=== PATIENT | female | born 1935 | race Two or more races ===

== ENCOUNTER 2017-12-04 17:16 | Emergency (ER) | payer OTHER ==
[~2017-12-04] VITALS: Ht 160 cm; Wt 51.3 kg
[~2017-12-04 17:16] MED LIST: ATIVAN0.5 M1; AVAPRO75 MG PO; CATAFLAM50 MG PO; HYDRALAZINE HCL10 MG PO; LYRICA50 MG PO; NABUMETONE500 MG PO; NORVASC2.5 M1; ORPH100T PO; PERCOCET 5/3251 TAB PO; PRILOSEC10 MG PO; PROAIR HFA8.5 GM; PROTEIN PO; SPIRIVA RESPIMAT4 G1 IH; SYNTHROID PO; SYNTHROID50 MCG; WELLBUTRIN100 MG; XANAX XR0.5 MG PO
[2017-12-09] MEDS ORDERED: FLOVENT DISKUS50 MCG IH (09:20)
[2017-12-09] MEDS ORDERED: NORVASC5 MG PO (09:21)
[2017-12-09] MEDS ORDERED: ZANTAC150 M3 PO (09:21)
[2017-12-09] MEDS ORDERED: PROAIR HFA8.5 GM (09:21)
[2017-12-09] MEDS ORDERED: ATIVAN0.5 M1 PO (09:22)
[2017-12-09] MEDS ORDERED: SYNTH PO (09:22)
[2017-12-09] MEDS ORDERED: VASOFLEX D1 CA1 EACH PO (09:23)
== END 2017-12-04 19:43 | disposition home or self-care (01) ==
LOC: ER 17:16
DX: S52.592A Other fractures of lower end of left radius, initial encounter for closed fracture (principal); W18.39XA Other fall on same level, initial encounter; Y93.89 Activity, other specified; Y92.018 Other place in single-family (private) house as the place of occurrence of the external cause; Y99.8 Other external cause status

== ENCOUNTER 2017-12-12 05:22 | Day surgery (SDC) | payer OTHER ==
[~2017-12-12 05:22] MED LIST changes: +ATIVAN0.5 M1 PO; +FLOVENT DISKUS50 MCG IH; +NORVASC5 MG PO; +SYNTH PO; +VASOFLEX D1 CA1 EACH PO; +ZANTAC150 M3 PO
[2017-12-12] MEDS ORDERED: PERCOCET 5-3251 EACH PO (10:21)
== END 2017-12-12 13:45 | disposition home or self-care (01) ==
LOC: CIR.AMB 05:22
DX: S52.532A Colles' fracture of left radius, initial encounter for closed fracture (principal); S52.572A Other intraarticular fracture of lower end of left radius, initial encounter for closed fracture; M81.0 Age-related osteoporosis without current pathological fracture
CPT/HCPCS: 25609; 20902; C1776

== ENCOUNTER 2019-05-06 10:32 | Outpatient (CLI) | payer OTHER ==
[~2019-05-06 10:32] MED LIST changes: +PERCOCET 5-3251 EACH PO
== END 2019-05-06 10:42 | disposition home or self-care (01) ==
LOC: RAD 501 10:32
DX: S69.82XA Other specified injuries of left wrist, hand and finger(s), initial encounter (principal); M79.672 Pain in left foot

== ENCOUNTER → 2019-11-26 | Outpatient (CLI) | payer OTHER | END | disposition home or self-care (01) | LOC: RAD 12:39 | DX: S52.531D Colles' fracture of right radius, subsequent encounter for closed fracture with routine healing (principal) ==

== ENCOUNTER 2019-12-11 10:18 | Outpatient (CLI) | payer OTHER | END 2019-12-13 09:15 | disposition home or self-care (01) | LOC: RAD 10:18 | DX: S52.501D Unspecified fracture of the lower end of right radius, subsequent encounter for closed fracture with routine healing (principal) ==

== ENCOUNTER 2020-01-13 09:58 | Emergency (ER) | payer OTHER ==
[~2020-01-13] VITALS: Ht 149.9 cm; Wt 65.3 kg
== END 2020-01-13 13:56 | disposition home or self-care (01) ==
LOC: ER 09:58
DX: S70.02XA Contusion of left hip, initial encounter (principal); S00.83XA Contusion of other part of head, initial encounter; W18.39XA Other fall on same level, initial encounter; Y93.89 Activity, other specified; Y92.098 Other place in other non-institutional residence as the place of occurrence of the external cause; Y99.8 Other external cause status

== ENCOUNTER 2020-01-27 12:36 | Outpatient (CLI) | payer OTHER | END 2020-01-27 12:46 | disposition home or self-care (01) | LOC: RAD 12:36 | DX: S52.501S Unspecified fracture of the lower end of right radius, sequela (principal); M25.512 Pain in left shoulder ==

== ENCOUNTER 2020-06-08 08:21 | Outpatient (CLI) | payer OTHER | END 2020-06-08 08:25 | disposition home or self-care (01) | LOC: RAD 08:21 | PROVIDERS: ATTEND Physical Medicine & Rehabilitation | DX: S32.000A Wedge compression fracture of unspecified lumbar vertebra, initial encounter for closed fracture (principal) ==

== ENCOUNTER 2020-10-31 09:00 | Outpatient (CLI) | payer OTHER | END 2020-10-31 12:13 | disposition home or self-care (01) | LOC: MRI 09:00 | PROVIDERS: ATTEND Physical Medicine & Rehabilitation | DX: M48.07 Spinal stenosis, lumbosacral region (principal) | CPT/HCPCS: 72148 ==

== ENCOUNTER 2021-04-03 08:59 | Outpatient (CLI) | payer OTHER | END 2021-04-03 09:08 | disposition home or self-care (01) | LOC: RAD 08:59 | PROVIDERS: ATTEND Physical Medicine & Rehabilitation | DX: S80.02XA Contusion of left knee, initial encounter (principal); S72.045A Nondisplaced fracture of base of neck of left femur, initial encounter for closed fracture ==

== ENCOUNTER → 2021-10-20 | Emergency (ER) | payer OTHER ==
[~2021-10-20] VITALS: Ht 157.5 cm; Wt 63.5 kg
== END | disposition home or self-care (01) ==
LOC: ER 10:33
DX: S42.292A Other displaced fracture of upper end of left humerus, initial encounter for closed fracture (principal); W18.39XA Other fall on same level, initial encounter; Y93.89 Activity, other specified; Y92.098 Other place in other non-institutional residence as the place of occurrence of the external cause; Y99.8 Other external cause status

== ENCOUNTER 2021-12-25 09:10 | Outpatient (CLI) | payer OTHER | END 2021-12-25 09:40 | disposition home or self-care (01) | LOC: TOM 09:10 | DX: R55 Syncope and collapse (principal) ==

== ENCOUNTER 2022-01-10 10:07 | Outpatient (CLI) | payer OTHER | END 2022-01-10 10:09 | disposition home or self-care (01) | LOC: LAB 10:07 | PROVIDERS: ATTEND Radiology Diagnostic Radiology | DX: F41.1 Generalized anxiety disorder (principal) ==

== ENCOUNTER 2022-01-14 08:41 | Outpatient (CLI) | payer OTHER | END 2022-01-14 08:42 | disposition home or self-care (01) | LOC: MRI 08:41 | PROVIDERS: ATTEND General Practice | DX: G44.001 Cluster headache syndrome, unspecified, intractable (principal); Z74.01 Bed confinement status; F41.1 Generalized anxiety disorder; F03.91 Unspecified dementia, unspecified severity, with behavioral disturbance | CPT/HCPCS: 70553; A9579; 70552 ==

== ENCOUNTER 2022-01-21 10:04 | Inpatient (IN) | payer OTHER ==
[~2022-01-21] VITALS: Ht 152.4 cm; Wt 59.0 kg
[2022-01-21] MEDS ORDERED: CARVEDILOL3.125 MG (10:13)
[2022-01-21] MEDS ORDERED: DECADRON4 MG PO (10:13)
[2022-01-22] MEDS ORDERED: LEVO-T25 MCG (10:11)
[2022-01-22] MEDS ORDERED: PROAIR HFA8.5 GM (10:11)
[2022-01-22] MEDS ORDERED: BUPROPION XL300 MG (10:11)
[2022-01-22] MEDS ORDERED: RESTORIL15 MG (10:11)
[2022-01-22] MEDS ORDERED: MIRTAZAPINE30 MG (10:11)
[2022-01-22] MEDS ORDERED: ALLOPURINOL100 MG (10:11)
[2022-01-22] MEDS ORDERED: ROSUVASTATIN CAL5 MG (10:12)
== END 2022-02-28 20:46 | disposition home or self-care (01) | DRG 689 ==
LOC: ER 10:04 → MEDI 22:47 → MEDJ 02-28 00:34 → MEDI 02-28 00:35
PROVIDERS: ADMIT Internal Medicine; ATTEND Internal Medicine
PROC: B020ZZZ Computerized Tomography (CT Scan) of Brain (ICD-10-PCS; 2022-01-21)
PROC: 02H633Z Insertion of Infusion Device into Right Atrium, Percutaneous Approach (ICD-10-PCS; 2022-01-24)
PROC: 02PAX3Z Removal of Infusion Device from Heart, External Approach (ICD-10-PCS; 2022-01-30)
PROC: 5A0945A Assistance with Respiratory Ventilation, 24-96 Consecutive Hours, High Flow/Velocity Cannula (ICD-10-PCS; 2022-02-02)
PROC: 30243N0 Transfusion of Autologous Red Blood Cells into Central Vein, Percutaneous Approach (ICD-10-PCS; principal; 2022-02-03)
PROC: CW1NLZZ Planar Nuclear Medicine Imaging of Whole Body using Gallium 67 (Ga-67) (ICD-10-PCS; 2022-02-03)
PROC: B24BYZZ Ultrasonography of Heart with Aorta using Other Contrast (ICD-10-PCS; 2022-02-05)
PROC: 02HV33Z Insertion of Infusion Device into Superior Vena Cava, Percutaneous Approach (ICD-10-PCS; 2022-02-11)
PROC: 0DH63UZ Insertion of Feeding Device into Stomach, Percutaneous Approach (ICD-10-PCS; 2022-02-22)
PROC: 3E0G76Z Introduction of Nutritional Substance into Upper GI, Via Natural or Artificial Opening (ICD-10-PCS; 2022-02-22)
PROC: 4A12X4Z Monitoring of Cardiac Electrical Activity, External Approach (ICD-10-PCS; 2022-02-22)
DX: N39.0 Urinary tract infection, site not specified (principal); N17.8 Other acute kidney failure; I13.0 Hypertensive heart and chronic kidney disease with heart failure and stage 1 through stage 4 chronic kidney disease, or unspecified chronic kidney disease; I50.31 Acute diastolic (congestive) heart failure; E46 Unspecified protein-calorie malnutrition; E87.1 Hypo-osmolality and hyponatremia; F03.90 Unspecified dementia, unspecified severity, without behavioral disturbance, psychotic disturbance, mood disturbance, and anxiety; R13.19 Other dysphagia; R63.39 Other feeding difficulties; J44.9 Chronic obstructive pulmonary disease, unspecified; E11.22 Type 2 diabetes mellitus with diabetic chronic kidney disease; N18.9 Chronic kidney disease, unspecified; E87.6 Hypokalemia; E83.39 Other disorders of phosphorus metabolism; D64.9 Anemia, unspecified; E86.0 Dehydration; E03.8 Other specified hypothyroidism; D63.1 Anemia in chronic kidney disease; Z74.01 Bed confinement status

== ENCOUNTER 2022-03-05 12:06 | Inpatient (IN) | payer OTHER ==
[~2022-03-05] VITALS: Ht 162.6 cm
[~2022-03-05 12:06] MED LIST changes: +ALLOPURINOL100 MG; +BUPROPION XL300 MG; +CARVEDILOL3.125 MG; +DECADRON4 MG PO; +LEVO-T25 MCG; +MIRTAZAPINE30 MG; +RESTORIL15 MG; +ROSUVASTATIN CAL5 MG
== END 2022-03-14 15:35 | disposition home or self-care (01) | DRG 291 ==
LOC: ER 12:06 → ICU-2 15:38 → MEDJ 03-07 20:43
PROVIDERS: ADMIT Internal Medicine; ATTEND Internal Medicine
PROC: 4A12X4Z Monitoring of Cardiac Electrical Activity, External Approach (ICD-10-PCS; principal; 2022-03-05)
PROC: 3E0F7GC Introduction of Other Therapeutic Substance into Respiratory Tract, Via Natural or Artificial Opening (ICD-10-PCS; 2022-03-05)
PROC: 3E0F7SF Introduction of Other Gas into Respiratory Tract, Via Natural or Artificial Opening (ICD-10-PCS; 2022-03-05)
PROC: 02HV33Z Insertion of Infusion Device into Superior Vena Cava, Percutaneous Approach (ICD-10-PCS; 2022-03-06)
DX: I13.0 Hypertensive heart and chronic kidney disease with heart failure and stage 1 through stage 4 chronic kidney disease, or unspecified chronic kidney disease (principal); J18.8 Other pneumonia, unspecified organism; I50.33 Acute on chronic diastolic (congestive) heart failure; J44.1 Chronic obstructive pulmonary disease with (acute) exacerbation; J81.1 Chronic pulmonary edema; K94.23 Gastrostomy malfunction; N18.9 Chronic kidney disease, unspecified; E11.22 Type 2 diabetes mellitus with diabetic chronic kidney disease; D63.1 Anemia in chronic kidney disease; R13.19 Other dysphagia; R09.02 Hypoxemia; E86.0 Dehydration; E87.6 Hypokalemia; E11.622 Type 2 diabetes mellitus with other skin ulcer; F02.80 Dementia in other diseases classified elsewhere, unspecified severity, without behavioral disturbance, psychotic disturbance, mood disturbance, and anxiety; L89.159 Pressure ulcer of sacral region, unspecified stage; E66.8 Other obesity; Z20.822 Contact with and (suspected) exposure to COVID-19; Z74.01 Bed confinement status; Z79.84 Long term (current) use of oral hypoglycemic drugs